=== PATIENT | male | born 1965 | race Caucasian/White ===

== ENCOUNTER 2016-08-01 07:30 | Day surgery (SDC) | payer OTHER ==
[~2016-08-01] VITALS: Ht 182.9 cm; Wt 90.5 kg
[2016-08-01] MEDS ORDERED: [UNRECOGNIZED DRUG - REMARK] PO (07:55)
[2016-08-01 07:56] VITALS: BP 139/93; PULSE 74; TEMP 97.9
[2016-08-01] MEDS ORDERED: NEXIUM24HROTC PO (07:56)
[2016-08-01 08:50] VITALS: BP 144/97; PULSE 75; TEMP 97
[2016-08-01 09:00] VITALS: BP 131/90; PULSE 80
[2016-08-01 09:15] VITALS: BP 124/76; PULSE 65
[2016-08-01 09:30] VITALS: BP 123/86; PULSE 72
[2016-08-01 10:00] VITALS: BP 124/95; PULSE 60
== END 2016-08-01 10:00 | disposition home or self-care (01) ==
LOC: SDCO 07:30
DX: K21.9 Gastro-esophageal reflux disease without esophagitis (principal); K44.9 Diaphragmatic hernia without obstruction or gangrene; K92.1 Melena
CPT/HCPCS: J2250; J3010; J7030

== ENCOUNTER → 2016-08-14 | Outpatient (CLI) | payer OTHER ==
[~2016-08-14] MED LIST: NEXIUM24HROTC PO; [UNRECOGNIZED DRUG - REMARK] PO
== END ==
LOC: COL.RAD 12:47
DX: M79.671 Pain in right foot (principal)